=== PATIENT | male | born 1940 | race Caucasian/White ===

== ENCOUNTER → 2016-07-29 | Outpatient (CLI) | payer MEDICARE, BC ==
[2016-07-29 11:50] LABS: Non-African American GFR(MDRD) >60 (>60 ml/min/1.73 sqM)
[2016-07-29 11:59] LABS: Blood Urea Nitrogen 13 mg/dL (9-20)
--- NOTE | 2016-07-29 15:12 | CT ---
"EXAMINATION TYPE: CT ChestAbdPelvis w con DATE OF EXAM: 07/29/2016 1:45 PM COMPARISON: CT chest abdomen pelvis 23 March 2016 HISTORY: Mesothelioma, Observation for Mets CT DLP: 1614 mGycm Automated exposure control for dose reduction was used. CONTRAST: CT scan of the chest, abdomen and pelvis is performed with Oral Contrast and with IV Contrast, patien t injected with 100 ml mL of Omnipaque 300. FINDINGS: LUNGS: The left pleural fluid collection is again noted with some associated atelectatic change. Pseu dotumor again suspected shows a similar appearance inferior left hemithorax. Calcified lung nodule at the left lung base is stable. Calcified pleural plaques again noted posterior pleural surface on the left. Emphysematous changes are again noted. Pleural thickening shows a similar appearance. Some bas ilar scarring present on the right. Nodular density in the left upper lobe may represent a focal scar and is somewhat diminished in conspicuity measuring only 5 mm. MEDIASTINUM: Mediastinal nodes show a stable appearance. There are coronary artery calcifications pre sent. No pericardial effusion. No axillary or hilar adenopathy. AORTA: Renal abdominal aortic aneurysm measures approximately 6.5 cm in greatest dimension which is increase d as compared to prior exam. OTHER: No additional significant abnormality is seen. LIVER/GB: Small cystic foci are present as on prior exam. Gallbladder is normal. PANCREAS: No significant abnormality is seen. SPLEEN: No significant abnormality is seen. ADRENALS: No significant abnormality is seen. KIDNEYS: Stable cystic foci. REPRODUCTIVE ORGANS: Hydrocele noted in the right hemiscrotum, prostate is enlarged and shows associa vivienne calcifications BOWEL: Nonspecific mucosal wall thickening along the rectosigmoid colon, no bowel obstruction, there is diverticular change FREE AIR: No Free Air visible. ASCITES: None seen. RETROPERITONEAL ADENOPATHY: No retroperitoneal adenopathy is seen. LYMPH NODES: No greater than 1 cm abdominal or pelvic lymph nodes are appreciated. URINARY BLADDER: No significant abnormality is seen. PELVIC ADENOPATHY: None visualized. OSSEOUS STRUCTURES: No significant abnormality is seen. IMPRESSION: There has been progression in patient's abdominal aortic aneurysm as described. Asbestos related disease, similar findings to prior exam within the chest. A Yellow message has been communicated to Nicho Aponte MD via the [employer] | Critical Result syst em on 07/29/2016 3:09 PM, Message ID [id number]."
== END | disposition home or self-care (01) ==
LOC: RADCTMAIN 11:06
PROVIDERS: ATTEND Internal Medicine Hematology & Oncology
DX: C45.9 Mesothelioma, unspecified (principal); I71.4 Abdominal aortic aneurysm, without rupture
CPT/HCPCS: 82565; 84520; 71260; 74177; 36415; Q9967

== ENCOUNTER → 2016-12-31 | Outpatient (CLI) | payer MEDICARE, BC ==
[2016-12-31 12:28] LABS: Blood Urea Nitrogen 15 mg/dL (9-20); Non-African American GFR(MDRD) >60 (>60 ml/min/1.73 sqM)
--- NOTE | 2016-12-31 15:54 | CT ---
EXAMINATION TYPE: CT ChestAbdPelvis w con DATE OF EXAM: 12/31/2016 COMPARISON: 07/29/2016 and 03/23/2016 HISTORY: 76-year-old male has no complaints at time of study. Follow up for lung CA. Mesothelioma, o bservation for suspected metastases. TECHNIQUE: Contiguous axial scanning of the chest, abdomen, and pelvis performed with IV Contrast, pa tient injected with 100 mL of Omnipaque 300. Delayed images through the kidneys were obtained. Marquez l/sagittal reconstructions performed. CT DLP: 592.9 mGycm Automated exposure control for dose reduction was used. FINDINGS: CHEST: The heart is normal size without pericardial effusion. Coronary vessel calcifications are present. Moderate arthroscopic calcifications throughout the thoracic aorta with bovine configuration to the a ortic arch. Prominent 7 mm AP window lymph node is unchanged from 03/23/2016. No progressive thoracic lymphadenopa thy. Bilateral calcified and noncalcified pleural plaques. A complex/complicated small to moderate left pl eural effusion remains though decreased in size from 07/29/2016 and significantly decreased in size fr om 03/23/2016. The previously described pleural-based soft tissue thickening such as along the medial left upper lob e and peripheral left midlung is no longer well demonstrated. Focal opacity at the inferior lingula abutting the pleural surface probably chronic atelectasis, shena lar to 07/29/2016. Underlying mild edema and a calcified granuloma at the left lower lobe. ABDOMEN: Small hiatal hernia. No focal liver lesion. Gallbladder, adrenal glands, spleen, and pancreas show no gross abnormal mobility. Subcentimeter hypodensities within both kidneys too small for accurate CT characterization, likely cy sts. There is a large 2.4 cm exophytic cyst from the lateral left kidney. No mesenteric or retroperitoneal lymphadenopathy. No dilated small bowel, free fluid, or free air. There is left hemicolonic diverticulosis, greatest in the sigmoid colon without pericolonic inflammat ory change. Redemonstrated AAA. This appears to continue as the slightly increased in size now measuring 5.6 x 6. 2 cm, axial image 72 versus 5.4 x 6.2 cm on 07/29/2016 and 5.4 x 5.7 cm on 03/23/2016. Pelvis: Bladder is urine distended. Prostate gland mildly enlarged 4.5 cm wide. No abnormal fluid collection in the pelvis or pelvic lymphadenopathy seen. Suspect a stable right-sided hydrocele. Bones: Degenerative changes lower lumbar spine and endplate spondylosis mid to lower thoracic spine. No osse ous destructive process. IMPRESSION: 1. SMALL TO MODERATE LEFT PLEURAL EFFUSION REMAINS, SLIGHTLY DECREASED IN SIZE FROM 07/29/2016. THERE IS PERIPHERAL PLEURAL ENHANCEMENT THAT COULD REPRESENT A COMPLICATED EFFUSION OR CHRONIC SEQUELA OF A SBESTOS RELATED PLEURAL DISEASE. 2. AREAS OF PLEURAL-BASED THICKENING IN THE LEFT LUNG DESCRIBED ON 03/23/2016 APPEAR TO HAVE IMPROVED. SOME ROUNDED AREAS OF SUBPLEURAL OPACITY IN THE INFERIOR LINGULA AND LEFT LOWER LOBE SUSPECTED TO REPRESENT AREAS OF ROUNDED ATELECTASIS PERSIST. 3. CONTINUED FOLLOW-UP RECOMMENDED GIVEN A 7 MM LEFT BASILAR PULMONARY NODULE WHICH APPEARS TO BE NEW . OTHERWISE, NO OTHER CONVINCING EVIDENCE FOR DISEASE PROGRESSION. 4. AAA MEASURING UP TO 5.6 X 6.2 CM IS STABLE TO MINIMALLY LARGER FROM 07/29/2016 (5.4 X 6.2 CM) BUT A PPEARS LARGER FROM 03/23/2016 (5.4 X 5.7 CM).
== END | disposition home or self-care (01) ==
LOC: RADCTMAIN 11:54
PROVIDERS: ATTEND Internal Medicine Hematology & Oncology
DX: J90 Pleural effusion, not elsewhere classified (principal); J92.9 Pleural plaque without asbestos; I71.4 Abdominal aortic aneurysm, without rupture; R91.1 Solitary pulmonary nodule
CPT/HCPCS: 82565; 84520; 71260; 74177; 36415; Q9967

== ENCOUNTER → 2017-03-30 | Outpatient (CLI) | payer MEDICARE, BC ==
[2017-03-30 12:15] LABS: Blood Urea Nitrogen 15 mg/dL (9-20); Non-African American GFR(MDRD) >60 (>60 ml/min/1.73 sqM)
--- NOTE | 2017-03-30 14:09 | CT ---
EXAMINATION TYPE: CT ChestAbdPelvis w con DATE OF EXAM: 03/30/2017 COMPARISON: NONE HISTORY: Patient has no complaints at time of study. Follow up study for mesothelioma. CT DLP: 576.2 mGycm. Automated Exposure Control for Dose Reduction was Utilized. CONTRAST: CT scan of the thorax, abdomen and pelvis is performed with oral and with IV Contrast, patient inject ed with 100 mL of Omnipaque 300. FINDINGS: LUNGS: There is background of moderate emphysematous change. Persistent small calcified pleural plaqu es are redemonstrated bilaterally. There is persistent small to moderate-sized left pleural fluid col lection or effusion which does not layer dependently. There is associated left basilar atelectasis an d/or infiltrate. There is new left upper lung pleural thickening laterally and medially slightly more nodular posterio rly left upper lobe on axial image 12 and most prominent anteriorly upper to mid lung on axial image 22. There is new small right pleural effusion. There is persistent linear scarring in the right lung base near diaphragm. There is stable calcified 5 mm nodule in the left lower lobe on axial image 39 medially. MEDIASTINUM: There are no greater than 1 cm new hilar or mediastinal lymph nodes. There is stable p rominent AP window lymph node on axial image 22. No cardiomegaly or pericardial effusion is seen. Pr ominent three-vessel coronary artery calcification is redemonstrated. VASCULAR: There is moderate to severe calcified plaque of aorta extending into branch vessels. Bovine arch is redemonstrated. There is large focal aneurysm of the infrarenal abdominal aorta measuring 6. 2 x 6.2 cm on axial image 70 not significantly changed from prior. No extension into common iliac art eries is seen. Length of the aneurysm is roughly 7 cm. There is fairly severe calcified plaque in the iliac branches in the pelvis. Significant stenosis cannot be excluded. LIVER/GB: 2 punctate hypodensities right hepatic lobe on series 7 image 23 and image 20 are too small to further characterize per presumed benign. PANCREAS: No significant abnormality is seen. SPLEEN: No significant abnormality is seen. ADRENALS: No significant abnormality is seen. KIDNEYS: There is 2.3 cm simple appearing cyst laterally mid pole level left kidney redemonstrated. BOWEL: Sigmoid colonic diverticulosis is present. There is no convincing evidence for acute diverticu litis. Oral contrast reaches level proximal sigmoid colon. There is no suspicious small or large sandro l dilatation seen. GENITAL ORGANS: Central zone calcifications are seen in prostate gland is mildly enlarged bulging on bladder base, underlying BPH is suspected. Mild wall thickening to bladder is likely product of outle t obstruction. LYMPH NODES: No greater than 1cm abdominal or pelvic lymph nodes are appreciated. OSSEOUS STRUCTURES: There is multilevel spurring in the spine. Slight underlying S-shaped scoliosis i s present. There is moderate to severe disc space narrowing and spurring at lumbosacral junction. The re is mild to moderate spurring and joint space loss in both hips. OTHER: There is partial visualization of moderate to large right scrotal fluid collection or hydrocel e similar to prior. IMPRESSION: 1. Interval developing mild diffuse and nodular left upper to mid lung pleural thickening worrisome f or progression of asbestos-related disease. 2. Stable 6.2 cm aneurysm of the infrarenal abdominal aorta
== END | disposition home or self-care (01) ==
LOC: RADCTMAIN 11:40
PROVIDERS: ATTEND Internal Medicine Hematology & Oncology
DX: C45.0 Mesothelioma of pleura (principal); R91.8 Other nonspecific abnormal finding of lung field; I71.4 Abdominal aortic aneurysm, without rupture
CPT/HCPCS: 82565; 84520; 71260; 74177; 36415; Q9967

== ENCOUNTER 2017-07-08 09:19 | Day surgery (SDC) | payer MEDICARE, BC ==
[2017-07-08 09:56] LABS: Mean Platelet Volume 7.2; Platelet Count 327 k/uL (150-450)
[2017-07-08 10:04] LABS: Prothrombin Time 9.9 sec (9.0-12.0)
--- NOTE | 2017-07-08 11:19 | US ---
Ultrasound-guided therapeutic and diagnostic thoracentesis DATE OF EXAM: 07/08/2017 CLINICAL HISTORY: Pleural effusion The procedure was discussed with the patient. The risks, complications, benefits, and alternatives we re discussed and any questions were answered. Informed consent was obtained. The patient was placed supine on the ultrasound table and prepped and draped in the usual sterile fas hion. All elements of maximal barrier and sterile technique were utilized. Under ultrasound guidance, access into the pleural space was obtained, via the thoracentesis catheter system and direct ultrasound guidance. Ap proximately 1.5 liters of serous fluid was removed. The patient was stable throughout the procedure and remained stable upon discharge from Department of Radiology. IMPRESSION: 1. Successful therapeutic and diagnostic thoracentesis under ultrasound guidance.
--- NOTE | 2017-07-08 11:27 | XR ---
EXAMINATION TYPE: XR chest 1V portable DATE OF EXAM: 07/08/2017 COMPARISON: 01/13/2016 HISTORY: Post right thoracentesis TECHNIQUE: Single frontal view of the chest is obtained. FINDINGS: Small bilateral effusions greater on the left and basilar consolidation. Scoliosis and deg enerative change of the spine. Atherosclerotic change aorta. Biapical pleural thickening. No evidence of pneumothorax. IMPRESSION: 1. No pneumothorax post thoracentesis. Bilateral infiltrate and pleural effusion noted.
[2017-07-08 15:40] LABS: Total Protein, Body Fluid 4400 mg/dL
[2017-07-08 16:33] VITALS: BP 99/64; PULSE 76; RESP 18; TEMP 97.6
== END 2017-07-08 11:45 | disposition home or self-care (01) ==
LOC: RADPROMAIN 09:19
PROVIDERS: ATTEND Internal Medicine Hematology & Oncology
DX: C45.9 Mesothelioma, unspecified (principal); J91.0 Malignant pleural effusion
CPT/HCPCS: 32555; 36415; 71045; 84157; 85049; 85610; 87070; 87205; 88108; 88305; 88341; 88342

== ENCOUNTER → 2017-08-18 | Outpatient (CLI) | payer MEDICARE, BC ==
[2017-08-18 14:04] LABS: Blood Urea Nitrogen 19 mg/dL (9-20)
--- NOTE | 2017-08-18 17:53 | CT ---
EXAMINATION TYPE: CT ChestAbdPelvis w con DATE OF EXAM: 08/18/2017 COMPARISON: 06/21/2017 and 03/30/2017 HISTORY: 77-year-old male Mesothelioma, suspected metastases. TECHNIQUE: Contiguous axial scanning of the chest, abdomen, and pelvis performed with IV Contrast, pa tient injected with 100 ml mL of Omnipaque 300. Delayed images through the kidneys were obtained. Cor onal/sagittal reconstructions performed. CT DLP: 1356 mGycm Automated exposure control for dose reduction was used. FINDINGS: CHEST: Normal size without pericardial effusion. Extensive coronary vessel calcifications are present and ar e remarkable for coronary artery disease. Aorta is normal caliber with bovine configuration to the aortic arch. Moderate atherosclerotic calcif ications throughout the aortic arch and descending aorta. AP window lymph node measures 8 mm versus 1.0 cm on 06/21/2017 and 8 mm on 03/30/2017. Similar irregular soft tissue pleural based thickening along the left heart margin, left lower periao rtic region, along the left cardiac base and superior mediastinum to a lesser extent. Additional mild pleural rind along the peripheral upper to mid left lung is also unchanged. Calcified pleural plaque s are noted with continued moderate to large subpulmonic pleural effusion on the left. Similar focal loculated fluid along the left major fissure at the mid lung level. The lateral left lower chest wall mass is redemonstrated measuring 2.7 x 4.2 cm not significantly ludy nged. Additional abnormal mass along the lower left chest wall below the inferior scapular tip was pr esent in retrospect, axial image 40 involving the chest wall musculature overlying the ribs. An additional left-sided chest wall mass overlying the left lateral seventh rib measures 5.1 x 1.9 cm versus 4.7 x 2.4 cm, not significantly changed. Moderate to large right pleural effusion with adjacent partial atelectasis of the basilar right lower lobe is unchanged. COPD with moderate emphysema. ABDOMEN: Subcentimeter hypodensities scattered throughout the liver are too small for accurate CT catheterizat ion and were present dating back to 06/21/2017 suspected to represent tiny cysts. Portal venous syste m is patent. No biliary ductal dilatation. Mild diffuse thickening of the left adrenal gland without discrete nodularity. Right adrenal gland, s pleen, and pancreas show no gross abnormal body. Subcentimeter hypodensities within the kidneys to small for accurate CT characterization, likely cyst s, largest measures 2.7 cm lateral left kidney compatible with a cyst. Symmetric uptake and excretion of contrast from both kidneys. There are dilated small bowel loops measuring up to 3.3 cm now with moderate abdominal ascites and in terloop fluid. Moderate to severe atherosclerotic changes in the upper abdominal aorta, distal abdominal ureter, and iliac arteries. Redemonstrated large 7.0 cm infrarenal abdominal aortic aneurysm. This is remeasured at 7.0 cm on and 6.8 cm on 03/30/2017. Additional aneurysm left common iliac artery at 2.7 cm unchanged fro m 03/30/2017. Oral contrast has progressed to the lower descending colon. There is mild left-sided diverticulosis. No mesenteric or retroperitoneal lymphadenopathy seen. Pelvis: Mild circumferential bladder wall thickening. Prostate gland slightly prominent at 4.3 cm wide with c entral calcifications. Ascites fluid collects in the pelvis. No definite pelvic lymphadenopathy. Bones: Mild degenerative changes at the hips. Degenerative changes at the SI joints and throughout the lumba r spine. No osseous destructive process. IMPRESSION: 1. ASBESTOS RELATED PLEURAL DISEASE AND COPD. 2. LEFT-SIDED PLEURAL RIND IS RELATIVELY UNCHANGED ARE MODERATE TO LARGE BILATERAL PLEURAL EFFUSIO NS THAT HAVE PROMINENT SUBPULMONIC COMPONENTS. 3. APPROXIMATELY 3 LEFT LATERAL AND LEFT POSTERIOR CHEST WALL MASSES MEASURING UP TO 5.1 CM ARE RELAT IVELY STABLE. 4. MODERATE TO LARGE ABDOMINOPELVIC ASCITES IS NEW. CONSIDER DIAGNOSTIC PARACENTESIS TO ASSESS FOR PO TENTIAL MALIGNANT ASCITES. 5. MILDLY DILATED SMALL BOWEL LOOPS MEASURING UP TO 3.3 CM WITHOUT TRANSITION POINT. GENERALIZED ILEU S IS SUSPECTED. 6. 7 CM AAA UNCHANGED FROM 06/21/2017, INCREASED BY A COUPLE MILLIMETERS FROM 03/30/2017. APPROPRIATE FOLLOW-UP AND MANAGEMENT RECOMMENDED. ADDITIONAL 2.7 CM LEFT COMMON ILIAC ARTERY ANEURYSM, UNCHANGED FROM 03/30/2017.
--- NOTE | 2017-08-18 22:59 | MR ---
EXAMINATION TYPE: MR brain wo/w con DATE OF EXAM: 08/18/2017 COMPARISON: Prior PET/CT November 18, 2013 did not include brain. HISTORY: Headache, memory loss, and confusion, per patient. Mesothelioma, possible metastatic disease per order. TECHNIQUE: Multiplanar, multisequence images of the brain and brainstem is performed without and with IV contras t, utilizing 6 mL intravenous Gadavist . FINDINGS: Motion artifact is noted making evaluation suboptimal. Repeat sequences were performed. Dif fusion weighted images demonstrate no evidence of a recent infarct or other diffusion abnormality. There is no worrisome extra-axial fluid collection. There is ventricular and sulcal prominence consis tent with diffuse cerebral atrophy. Midline structures demonstrate normal morphology. The craniocervical junction appears within normal limits. Post contrast images demonstrate homogeneously enhancing 2.4 x 2.1 cm high right frontal ext ra-axial lesion with dural tail consistent with meningioma axial image 23. The dural venous sinuses a ppear patent. The visualized sinuses are clear and the globes are intact. IMPRESSION: 1. No suspicious enhancing intraparenchymal mass to suggest metastatic disease. A 2.4 cm high right f rontal meningioma is however noted. 2. Background of fairly moderate diffuse cerebral atrophy.
== END | disposition home or self-care (01) ==
LOC: RADCTMAIN 12:41
PROVIDERS: ATTEND Internal Medicine Hematology & Oncology
DX: G31.9 Degenerative disease of nervous system, unspecified (principal); C45.9 Mesothelioma, unspecified; D32.0 Benign neoplasm of cerebral meninges; J90 Pleural effusion, not elsewhere classified; J61 Pneumoconiosis due to asbestos and other mineral fibers; R18.8 Other ascites; I71.4 Abdominal aortic aneurysm, without rupture; I72.3 Aneurysm of iliac artery; R22.2 Localized swelling, mass and lump, trunk; K63.89 Other specified diseases of intestine
CPT/HCPCS: 82565; 84520; 71260; 74177; 36415 ×2; 70553; Q9967; A9581

== ENCOUNTER 2017-09-01 07:57 | Day surgery (SDC) | payer MEDICARE, BC ==
[2017-09-01 08:45] VITALS: RESP 18; TEMP 97.6
[2017-09-01 08:55] LABS: Mean Platelet Volume 6.7; Platelet Count 580 k/uL (150-450)
[2017-09-01 08:56] LABS: INR 1.1 (<1.2); Prothrombin Time 10.6 sec (9.0-12.0)
[2017-09-01 10:22] VITALS: BP 121/76; PULSE 77
--- NOTE | 2017-09-01 11:44 | US ---
EXAMINATION TYPE: US paracentesis abd w/image DATE OF EXAM: 09/01/2017 COMPARISON: CT 08/18/2017 HISTORY: Ascites. PROCEDURE: Maximal barrier technique was utilized. The skin overlying a suitable pocket of fluid was localized with ultrasound and the overlying skin was prepped and draped. Ultrasound was utilized with sterile technique. Lidocaine was used for local anesthesia and a skin jose l made with a scalpel. Catheter was advanced under direct ultrasound guidance into a suitable pocket of fluid and approximately 4 liters of serous fluid were removed. Catheter was withdrawn and hemostasis achieved. There is no immediate complication; the patient is discharged in stable condition. IMPRESSION: STATUS POST ULTRASOUND GUIDED PARACENTESIS FOR PALLIATION OF ASCITES. THIS PROCEDURE WA S PERFORMED BY THE UNDERSIGNED. Specimen sent for laboratory analysis.
== END 2017-09-01 10:20 | disposition home or self-care (01) ==
LOC: RADPROMAIN 07:57
PROVIDERS: ATTEND Internal Medicine Hematology & Oncology
DX: R18.8 Other ascites (principal); C45.0 Mesothelioma of pleura
CPT/HCPCS: 36415; 49083; 82042; 82565; 85049; 85610; 87070; 87075; 87205; 88108; 88305; 88341; 88342